=== PATIENT | female | born 1955 | race Caucasian/White ===

== ENCOUNTER 2020-10-13 19:31 | Inpatient (IN) | payer MEDICARE, OTHER ==
[~2020-10-13] VITALS: Ht 172.7 cm; Wt 87.6 kg
[~2020-10-13 19:31] MED LIST: ACID REDUCER150 MG PO; CEVIMELINE HCL30 MG PO; LEVOTHYROXINE75 MCG PO
--- NOTE | 2020-10-13 20:47 | EKG ---
[facility] [address] [place], [place] [address] Signed Normal sinus rhythm Right bundle branch block Abnormal ECG No previous ECGs available Confirmed by TG TRIPP MD ([id number]) on 10/13/2020 8:47:04 PM Electronically Signed By: TG TRIPP MD 10/13/202046 PATIENT NAME: GRETA HERNANDEZ Electrocardiogram DATE OF : 53 PHYSICIAN: TG TRIPP MD REPORT #: [id number] REPORT IS CONFIDENTIAL AND NOT TO BE RELEASED WITHOUT AUTHORIZATION
--- NOTE | 2020-10-13 23:35 | NUR ---
PT ARRIVES TO FLOOR VIA STRETCHER. ABLE TO STAND AND AMBULATE TO THE BR AND TO BED WITH SBA. TOLERATES WELL. ADMISSION PROCESS COMPLETE. PT INQUIRES ABOUT HOME MEDICATIONS. QUESTIONS ANSWERED. PT EDUCATED REGARDING THIS FLOOR AND POC FOR THIS SHIFT. PT DENIES FURTHER NEEDS AT THIS TIME. CALL LIGHT IN REACH. PT AGREES TO USE FOR NEEDS. WHITE BOARD UPDATED.
[2020-10-13] MEDS ORDERED: OMEPRAZOLE20 MG PO (23:41)
--- NOTE | 2020-10-14 00:07 | NUR ---
ASSESSMENT COMPLETE. IVF INFUSING WNL. PT RESTING IN BED, STATES N/T IN L HAND, FINGERS, CMS OTHERWISE INTACT. LUNG SOUNDS CLEAR, HRR, BOWEL TONES ACTIVE. VSS, A+O, NO MOTOR DEFICITS NOTED, NO SPEECH ABNORMALITIES. ORIENTED TO ROOM, WATER PROVIDED, CALL LIGHT IN REACH, WILL CONTINUE TO MONITOR.
--- NOTE | 2020-10-14 02:12 | NUR ---
VITALS AND ASSESSMENT COMPLETE, PT AMBULATED TO BR WITH SBA, IVF INFUSING WNL. PT REPORTS INTERMITTENT SPASMS OF HER R LEG, WHICH SHE STATES IS NEW TO HER. WARM BLANKET PROVIDED, CALL LIGHT IN REACH, NO OTHER NEEDS AT THIS TIME.
--- NOTE | 2020-10-14 04:00 | NUR ---
PT RESTING IN BED WITH EYES CLOSED, BREATHING EVEN AND UNLABORED, NO APPARENT NEEDS, IVF INFUSING WNL. CALL LIGHT IN REACH
--- NOTE | 2020-10-14 05:45 | NUR ---
IN TO GET VITALS, PT UP TO THE TOILET, SBA WITH IV POLE, FRESH ICE WATER GIVEN, NO FURTHER NEEDS AT THIS TIME
--- NOTE | 2020-10-14 08:00 | NUR ---
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 TO HAVE SOME TINGLING IN FINGER TIPS ON L HAND. DENIES ANY NEEDS. CALL LIGHT IN EASY REACH.
[2020-10-14] MEDS ORDERED: VITAMIN C500 M4 (10:34)
[2020-10-14] MEDS ORDERED: COMPLEX B-1001 EACH PO (10:34)
[2020-10-14] MEDS ORDERED: MAGNESIUM400 M1 PO (10:34)
[2020-10-14] MEDS ORDERED: ZINC50 M1 PO (10:35)
[2020-10-14] MEDS ORDERED: CENTRUM SILVER1 EAC5 PO (10:35)
[2020-10-14] MEDS ORDERED: CLARITIN10 MG PO (10:36)
[2020-10-14] MEDS ORDERED: CALCIUM 600+D1 EACH PO (10:37)
--- NOTE | 2020-10-14 10:45 | NUR ---
UP TO SHOWER, TOLERATED WELL, CONT. TO DENY DUMONT OR DIZZINESS. DENIES ANY WEAKNESS, REMAINS IN GOOD SPIRITS.
--- NOTE | 2020-10-14 14:00 | NUR ---
ATE 100% OF LUNCH, DENIES ANY NEEDS. TALKING WITH FAMILY ON PHONE.
--- NOTE | 2020-10-14 16:56 | NUR ---
SITTING UP IN RECLINER WATCHING MOVIE, STATES TINGLING IN FINGERS MOSTLY GONE. NO DUMONT OR ANY CONCERNS.
--- NOTE | 2020-10-14 17:45 | NUR ---
PT HAS BEEN UP ABOUT ROOM INDEP TODAY, TOLERATED SHOWER. DENIES DUMONT OR DIZZINESS ALL DAY, NO WEAKNESS, REPORTS TINGLING IN FINGERTIPS HAS RESOLVED THIS AFTERNOON, SCHEDULED FOR MRI TOMORROW.
--- NOTE | 2020-10-14 19:15 | NUR ---
REPORT RECEIVED FROM JAKE CAMPBELL. PT RESTING WITH IVF INFUSING, CALL LIGHT IN REACH, NO NEEDS AT THIS TIME.
--- NOTE | 2020-10-14 19:58 | NUR ---
VITALS AND I/O'S COMPLETED. ASSESSMENT COMPLETE, PT NOT EXPERIENCING ANY RESIDUAL NEURO DEFICITS. NEW BAG IVF INFUSING WNL. PT INDEPENDENT IN ROOM, WATER REFILLED, CALL LIGHT IN REACH. NO OTHER NEEDS AT THIS TIME.
--- NOTE | 2020-10-14 20:00 | NUR ---
V/S AND I&O DONE. ADRIAN PRINGLE WAs with PATIENT. NO OTHER NEEDS AT THAT TIME.
--- NOTE | 2020-10-14 22:15 | NUR ---
ROUNDED ON PATIENT, RESTING IN BED WITH EYES CLOSED, BREATHING EVEN AND UNLABORED. NO APPARENT NEEDS AT THIS TIME, WILL CONTINUE TO MONITOR.
--- NOTE | 2020-10-15 00:27 | NUR ---
ROUNDED ON PATIENT, IN BED WITH EYES CLOSED, BREATHING EVEN AND UNLABORED. CALL LIGHT IN REACH, IVF INFUSING WNL.
--- NOTE | 2020-10-15 02:00 | NUR ---
ROUNDED ON PATIENT, RESTING IN BED WITH EYES CLOSED, BREATHING EVEN AND UNLABORED, NO APPARENT NEEDS AT THIS TIME. IVF INFUSING WNL.
--- NOTE | 2020-10-15 04:04 | NUR ---
resting, on room air, ivf infusing
--- NOTE | 2020-10-15 05:33 | NUR ---
awakes easily, no distress, no c/o sob or pain. on room air. Tele#[address], SR, IVF infusing w/o problems, voiding QS, independent in room. Coop with assessment
--- NOTE | 2020-10-15 05:51 | NUR ---
Pt has slept, no c/o sob or cp, tele#3 [address], SR. much improved numbness of arm, "almost all gone". IVF infusing w/o problems. Independent in room, voiding QS yellow urine. turns self in bed, tolerating liquids well.
--- NOTE | 2020-10-15 06:03 | NUR ---
c/o light h/a, ice pack given. independent inroom, no cp, no further c/o arm numbness
--- NOTE | 2020-10-15 09:51 | NUR ---
ATE 100% OF BREAKFAST, ALERT, IN GOOD SPIRITS, NO NEURO DEFICITS, C/O STRANGE FEELING OF A TIGHT BAND ACROSS TO OF HEAD. SPOKE WITH DR MC. PT IS WAITING TO HAVE MRI TODAY. NO NEW ORDERS.
--- NOTE | 2020-10-15 10:09 | NUR ---
PATIENT IND IN ROOM. PATIENT SITTING IN CHAIR WATCHING TV. AM CARE, ORAL CARE SUPPLIES AT SINK. CALL LIGHT IN REACH. NO FURTHER NEEDS AT THIS TIME.
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
--- NOTE | 2020-10-15 14:58 | NUR ---
MRI HAS BEEN RESCHEDULED FOR TOMORROW.
--- NOTE | 2020-10-15 16:30 | NUR ---
SPOKE WITH PATIENT IN ROOM. SHE WAS UP IN CHAIR. PATIENT LIVES WITH SON. HAS NO STAIRS. DRIVES OWN CAR. IS RETIRED. SHE USES NO DME. SHE DENIES FINANCIAL WORRY FOR MEDS, FOOD OR UTILITIES. SHE HAS FRIENDS AND FAMILY FOR SUPPORT AND TRANSPORTATION IF NEEDED. SHE INTENDS TO TRANSITION HOME AND FEELS SAFE FOR HOME DISCHARGE. CM WILL FOLLOW NEEDED.
--- NOTE | 2020-10-15 17:43 | NUR ---
PATIENT UP TO SHOWER, IND. SHOWER SET UP FOR PATIENT. LINENS CHANGED. NEW GOWN PROVIDED. PATIENT NOW BACK TO CHAIR, IND. FRESH WATER GIVEN. CALL LIGHT IN REACH. NO FURTHER NEEDS AT THIS TIME.
--- NOTE | 2020-10-15 19:55 | NUR ---
PT ASSESSMENT COMPLETE. PT SITTING UP IN CHAIR REPORTS THAT PAIN, NAUSEA, SOB ARE WELL CONTROLLED AT THIS TIME. STATES THAT SHE IS HAVING A SLIGHT PRESSURE IN HER HEAD, THAT PRESENTED WITH FEELING FLUSH AND HER HEAD FEELING "SWIMMY". PT RELATES THIS TO A SIMILAR EXPERIENCE RIMA THAT SHE DISCUSSED WITH . IS LOOKING FORWARD TO HER MRI TOMORROW. NERUO ASSESSMENT WNL. PT DENIES ANY NUMBNESS OR TINLING TO EXTREMITIES. NO WEAKNESS NOTED TO EXTREMITIES. NO FACIAL DROOP OR ALTER SPEECH. IV FLUSHED, WNL. PT STATES THAT SHE ENJOYED HER SHOWER. ICE WATER REFILLED. VS OBTAINED. WNL. CALL LIGHT IN REACH. PT AGREES TO USE FOR NEEDS. DENIES FURTHER NEEDS AT THIS TIME.
--- NOTE | 2020-10-15 22:14 | NUR ---
PT UTILIZED CALL LIGHT, REPORTS THAT SHE IS HAVING TINGLING IN HER L ARM, HAND, AND FINGERS. STATES THAT THIS IS THE EXACT SENSATION THAT SHE HAD UPON COMING TO ED. NEURO ASSESSMENT PERFORMED, OTHERWISE WNL. BP ELEVATED. MD NOTIFIED. WILL RECHECK BP IN 1 HOUR AND CONTINUE TO MONITOR PER MD. PT NOTIFIED OF PLAN STATES AGREEMENT, WILL CALL FOR ANY CHANGES. DENIES NEEDS AT THIS TIEM. CALL LIGHT IN REACH.
--- NOTE | 2020-10-15 23:05 | NUR ---
VS RECHECKED. WNL. PT STATES THAT THE FULLNESS IN HER HEAD HAS SUBSIDED SOMEWHAT. HOEVER, NEW ONSET OF TINGLING TO R HAND AND BILATERAL FEET TO MIDTHIGHS IS PRESENT. PT UP TO BATHROOM WITH SBA. PT STATES SHE FEELS A LITTLE WOBBLY. PT ICE WATER REFILLED PER REQUEST. PT DENIES FURTHER NEEDS AT THIS TIME. CALL LIGHT IN REACH. MD NOTIFIED OF NEW TINGLING, NO NEW ORDERS RECEIVED.
--- NOTE | 2020-10-16 03:04 | NUR ---
PT RESTING IN BED AWAKE. PT DENIES PAIN, NAUSEA, OR SOB. PT STATES THAT NUMBNESS AND TINGLING TO B HANDS AND RLE HAS RESOLVED. NUMBNESS AND TINGLING TO LLE CONTINUES, ESPECALLY TO BACK OF HER LEG. SHE STATES THAT IF SHE PUSHES ON THE BACK OF THE LEG, THE FULLNESS TO HER HEAD INCREASES. STATES THAT THE FULL FEELING IN HER HEAD HAS RESOLVED SOMEWHAT. ICE WATER REFILLED. PT DENIES FURTHER NEEDS AT THIS TIME. CALL LIGHT IN REACH.
[2020-10-16] MEDS ORDERED: ASPIRIN325 MG PO (08:25)
--- NOTE | 2020-10-16 09:00 | NUR ---
pt returned from MRI early this morning. Denies any numbness or tingling in any extremities. Says she has had a dull headache that comes and goes but that it is barely noticeable. No noteable deficits. Neuro assessment WNL. VSS. Pt is without complaint and MD in to see pt for likely DC. Pt is independent and ambulatory in room. Call light in reach. No other needs at this time.
--- NOTE | 2020-10-16 09:12 | NUR ---
IV TAKEN OUT UPON RN REQUEST. CATH IN TACT AND LOOKED GOOD, RN NOTIFIED. PATIENT IND IN ROOM AND GETTING DRESSED AND READY TO DC. CALL LIGHT IN REACH. NO FURTHER NEEDS AT THIS TIME.
--- NOTE | 2020-10-16 09:20 | NUR ---
pt vss. IV removed by Carmen SPARROW. DC paperwork completed.
== END 2020-10-16 09:41 | disposition home or self-care (01) | DRG 69 ==
LOC: ED 19:31 → MS 22:51
PROVIDERS: ADMIT Internal Medicine; ATTEND Internal Medicine
DX: G45.9 Transient cerebral ischemic attack, unspecified (principal); Z20.822 Contact with and (suspected) exposure to COVID-19; R20.0 Anesthesia of skin; M35.00 Sjogren syndrome, unspecified; R26.81 Unsteadiness on feet; E03.9 Hypothyroidism, unspecified; K21.9 Gastro-esophageal reflux disease without esophagitis; Z79.899 Other long term (current) drug therapy
CPT/HCPCS: 36415; 70450; 70496; 70498; 70551; 71045; 80048; 80053; 83735; 84100; 84484; 85025; 85610; 85730; 93005; 93010; 99285-25; C9803; J7030; Q9967; U0003